=== PATIENT | female | born 1945 | race Caucasian/White ===

== ENCOUNTER → 2016-12-13 | Outpatient (CLI) | payer MEDICARE, MEDICAID | LOC: MC.RAD 12:49 | DX: Z12.31 Encounter for screening mammogram for malignant neoplasm of breast (principal) ==

== ENCOUNTER 2017-11-06 17:46 | Emergency (ER) | payer MEDICARE, MEDICAID ==
[~2017-11-06] VITALS: Ht 149.9 cm; Wt 56.4 kg
[2017-11-06] MEDS ORDERED: CELEBREX 200MG200 MG PO (18:15)
[2017-11-06] MEDS ORDERED: DEXILANT60 MG PO (18:15)
[2017-11-06] MEDS ORDERED: HCTZ12.5TAB PO (18:16)
[2017-11-06] MEDS ORDERED: REQUIP 1MG T1 MG/TAB PO (18:17)
[2017-11-06] MEDS ORDERED: SINGULAIR 110 MG/TAB PO (18:17)
[2017-11-06] MEDS ORDERED: LOPRESSOR 550 MG/TAB PO (18:18)
[2017-11-06] MEDS ORDERED: NEURONTIN300 MG/CAP PO (18:19)
[2017-11-06] MEDS ORDERED: PAXIL40 MG PO (18:19)
[2017-11-06] MEDS ORDERED: WELLBUTRIN SR150 M1 PO (18:20)
[2017-11-06] MEDS ORDERED: NORCO 325 MG-51 TAB PO (19:17)
[2017-11-06 19:34] VITALS: BP 128/60; PULSE 56; TEMP 97.9
== END 2017-11-06 19:35 | disposition home or self-care (01) ==
LOC: COL.ER 17:46
DX: M79.661 Pain in right lower leg (principal); M54.9 Dorsalgia, unspecified; F17.210 Nicotine dependence, cigarettes, uncomplicated; Z87.81 Personal history of (healed) traumatic fracture; Z90.710 Acquired absence of both cervix and uterus; Z98.890 Other specified postprocedural states; X50.9XXA Other and unspecified overexertion or strenuous movements or postures, initial encounter

== ENCOUNTER 2018-01-04 12:30 | Outpatient (RCR) | payer MEDICARE, MEDICAID ==
[~2018-01-04 12:30] MED LIST: CELEBREX 200MG200 MG PO; DEXILANT60 MG PO; HCTZ12.5TAB PO; LOPRESSOR 550 MG/TAB PO; NEURONTIN300 MG/CAP PO; NORCO 325 MG-51 TAB PO; PAXIL40 MG PO; REQUIP 1MG T1 MG/TAB PO; SINGULAIR 110 MG/TAB PO; WELLBUTRIN SR150 M1 PO
== END 2018-02-07 | disposition home or self-care (01) ==
LOC: WSPT
DX: M79.661 Pain in right lower leg (principal)
CPT/HCPCS: G8978-GP; G8979-GP

== ENCOUNTER → 2018-01-10 | Outpatient (CLI) | payer MEDICARE, MEDICAID | LOC: MC.RAD 14:13 | DX: Z12.31 Encounter for screening mammogram for malignant neoplasm of breast (principal) ==

== ENCOUNTER 2019-02-09 18:35 | Emergency (ER) | payer MEDICARE, MEDICAID ==
[~2019-02-09] VITALS: Ht 144.8 cm; Wt 48.2 kg
[2019-02-09 18:40] VITALS: TEMP 98
[2019-02-09 19:06] LABS: BASO # 0.1 (0.0-0.2); BASO % 0.5 % (0.0-2.0); EOS # 0.3 (0.0-0.7); EOS % 1.6 % (0-4.0); GRAN # 12.9 (1.4-6.5); GRAN % 70.8 % (42.2-75.2); HEMATOCRIT 40.4 % (37.0-47.0); HEMOGLOBIN 13.1 g/dl (12.5-16.0); LYMPH # 3.3 (1.2-3.4); LYMPH % 18.4 % (20.0-51.0); MEAN CELL VOLUME 86 fl (80.0-100.0); MEAN CORPUSCULAR HEMOGLOBIN 28 pg (27.0-31.0); MEAN CORPUSCULAR HGB CONC 32 g/dl (33.0-37.0); MEAN PLATELET VOLUME 9.3 fl (7.4-10.4); MONO # 1.5 (0.1-0.6); MONO % 8.1 % (1.7-9.3); PLATELET COUNT 524 K/mm3 (130-400); RED BLOOD COUNT 4.71 M/mm3 (4.10-5.30); REDCELL DISTRIBUTION WIDTH-CV 15.5 % (11.5-14.5)
[2019-02-09 19:21] LABS: ALANINE AMINOTRANSFERASE < 6 U/L (9-52); ALKALINE PHOSPHATASE 170 U/L (50-136); ANION GAP 14 mmol/L (7-16); AST,SGOT 22 U/L (15-37); BILIRUBIN,TOTAL 0.3 mg/dL (0.0-1.0); BLOOD UREA NITROGEN 16 mg/dL (7-17); C-REACTIVE PROTEIN 2.4 mg/dL (0.0-0.9); CALCIUM 9.3 mg/dL (8.4-10.2); CARBON DIOXIDE 22 mmol/L (22-30); CHLORIDE 101 mmol/L (98-107); CREATININE, serum 1.07 (0.52-1.25); GLUCOSE 93 mg/dL (74-106); LIPASE 174 U/L (23-300); POTASSIUM 3.6 mmol/L (3.4-5.0); SODIUM 136 mmol/L (137-145); TOTAL PROTEIN 8.2 gm/dL (6.4-8.2)
[2019-02-09 19:30] LABS: TROPONIN-I < 0.012 ng/mL (0.000-0.035)
[2019-02-09 20:46] LABS: COLLECTION METHOD CLEAN CATCH
[2019-02-09 20:54] LABS: MUCOUS Present /lpf; PH 5 (5-8); URINE APPEARANCE Clear; URINE BACTERIA None Seen /hpf; URINE BILIRUBIN Negative (NEGATIVE); URINE BLOOD Negative (NEGATIVE); URINE COLOR Straw; URINE GLUCOSE Negative (NEGATIVE); URINE KETONE Negative (NEGATIVE); URINE LEUKOCYTE ESTERASE Trace (NEGATIVE); URINE NITRATE Positive (NEGATIVE); URINE PROTEIN(semi-quant) Negative (NEGATIVE); URINE RBC 0-2 /hpf; URINE UROBILINOGEN Negative (NEGATIVE)
[2019-02-09] MEDS ORDERED: NORCO 325 MG-51 TAB PO (21:04)
[2019-02-09 21:11] VITALS: BP 129/74; PULSE 78
== END 2019-02-09 21:14 | disposition home or self-care (01) ==
LOC: COL.ER 18:35
PROVIDERS: Emergency Medicine
DX: R19.7 Diarrhea, unspecified (principal); R10.11 Right upper quadrant pain; R10.12 Left upper quadrant pain; F32.9 Major depressive disorder, single episode, unspecified; I10 Essential (primary) hypertension; F17.210 Nicotine dependence, cigarettes, uncomplicated
CPT/HCPCS: J2405; J3010; J7030; Q9967

== ENCOUNTER → 2019-02-21 | Outpatient (CLI) | payer MEDICARE, MEDICAID ==
[2019-02-21 10:15] LABS: BASO # 0.1 (0.0-0.2); BASO % 0.7 % (0.0-2.0); EOS # 0.3 (0.0-0.7); EOS % 2.3 % (0-4.0); GRAN # 9.6 (1.4-6.5); GRAN % 69.4 % (42.2-75.2); HEMATOCRIT 38.6 % (37.0-47.0); HEMOGLOBIN 12.4 g/dl (12.5-16.0); LYMPH # 2.6 (1.2-3.4); LYMPH % 18.6 % (20.0-51.0); MEAN CELL VOLUME 85 fl (80.0-100.0); MEAN CORPUSCULAR HEMOGLOBIN 27 pg (27.0-31.0); MEAN CORPUSCULAR HGB CONC 32 g/dl (33.0-37.0); MEAN PLATELET VOLUME 9.1 fl (7.4-10.4); MONO # 1.1 (0.1-0.6); MONO % 8.2 % (1.7-9.3); PLATELET COUNT 546 K/mm3 (130-400); RED BLOOD COUNT 4.56 M/mm3 (4.10-5.30); REDCELL DISTRIBUTION WIDTH-CV 14.6 % (11.5-14.5)
[2019-02-21 10:24] LABS: ALANINE AMINOTRANSFERASE < 6 U/L (9-52); ALBUMIN 3.8 gm/dL (3.5-5.0); ALKALINE PHOSPHATASE 151 U/L (50-136); ANION GAP 16 mmol/L (7-16); AST,SGOT 25 U/L (15-37); BILIRUBIN,TOTAL 0.2 mg/dL (0.0-1.0); BLOOD UREA NITROGEN 22 mg/dL (7-17); CALCIUM 8.9 mg/dL (8.4-10.2); CARBON DIOXIDE 21 mmol/L (22-30); CHLORIDE 101 mmol/L (98-107); CREATININE, serum 1.18 (0.52-1.25); GLUCOSE 101 mg/dL (74-106); POTASSIUM 4.1 mmol/L (3.4-5.0); SODIUM 138 mmol/L (137-145); TOTAL PROTEIN 7.8 gm/dL (6.4-8.2)
== END ==
LOC: COL.LAB 09:45 → COL.RAD 09:45
PROVIDERS: Physician Assistant
DX: I70.0 Atherosclerosis of aorta (principal); I35.0 Nonrheumatic aortic (valve) stenosis; I70.8 Atherosclerosis of other arteries; K55.1 Chronic vascular disorders of intestine; N28.81 Hypertrophy of kidney; N28.1 Cyst of kidney, acquired; K57.30 Diverticulosis of large intestine without perforation or abscess without bleeding; K20.9 Esophagitis, unspecified; R15.9 Full incontinence of feces; R19.7 Diarrhea, unspecified; R63.4 Abnormal weight loss; Z90.710 Acquired absence of both cervix and uterus
CPT/HCPCS: Q9967

== ENCOUNTER 2019-06-11 01:21 | Emergency (ER) | payer MEDICARE, MEDICAID ==
[~2019-06-11] VITALS: Ht 144.8 cm; Wt 42.7 kg
[2019-06-11 01:25] VITALS: TEMP 97.5
[2019-06-11 01:45] LABS: HEMOGLOBIN 11.5 g/dl (12.5-16.0); MEAN CELL VOLUME 82 fl (80.0-100.0); MEAN CORPUSCULAR HEMOGLOBIN 27 pg (27.0-31.0); MEAN CORPUSCULAR HGB CONC 33 g/dl (33.0-37.0); MEAN PLATELET VOLUME 9.2 fl (7.4-10.4); PLATELET COUNT 575 K/mm3 (130-400); REDCELL DISTRIBUTION WIDTH-CV 15.6 % (11.5-14.5)
[2019-06-11 01:49] LABS: HEMATOCRIT 35.4 % (37.0-47.0)
[2019-06-11 02:01] LABS: ALANINE AMINOTRANSFERASE 7 U/L (9-52); ALKALINE PHOSPHATASE 141 U/L (50-136); AST,SGOT 23 U/L (15-37); BILIRUBIN,TOTAL 0.4 mg/dL (0.0-1.0); BLOOD UREA NITROGEN 17 mg/dL (7-17); CALCIUM 8.8 mg/dL (8.4-10.2); CARBON DIOXIDE 22 mmol/L (22-30); CHLORIDE 100 mmol/L (98-107); GLUCOSE 133 mg/dL (74-106); LIPASE 52 U/L (23-300); TOTAL PROTEIN 7.6 gm/dL (6.4-8.2)
[2019-06-11 02:02] LABS: POTASSIUM 2.8 mmol/L (3.4-5.0)
[2019-06-11 02:04] LABS: SODIUM 136 mmol/L (137-145)
[2019-06-11 02:05] LABS: ANION GAP 14 mmol/L (7-16)
[2019-06-11 02:09] LABS: TROPONIN-I < 0.012 ng/mL (0.000-0.035)
[2019-06-11 02:11] LABS: ANISOCYTOSIS 1+; HYPOCHROMIA 1+; LYMPHOCYTE 4 % (20.0-51.0); NEUTROPHILS 88 % (42.0-75.2); PLATELET ESTIMATE INCREASED (NORMAL)
[2019-06-11 02:12] LABS: C-REACTIVE PROTEIN 12.8 mg/dL (0.0-0.9)
[2019-06-11 02:23] LABS: INR 1.2 (0.8-3.0); PROTHROMBIN TIME 14.3 SECONDS (9.7-12.8)
[2019-06-11 03:34] LABS: COLLECTION METHOD CLEAN CATCH
[2019-06-11 03:39] LABS: MUCOUS Present /lpf; PH 5 (5-8); SQUAMOUS EPITHELIAL 0-2 /hpf; URINE APPEARANCE Clear; URINE BACTERIA None Seen /hpf; URINE BILIRUBIN Negative (NEGATIVE); URINE BLOOD 1+ (NEGATIVE); URINE COLOR Straw; URINE GLUCOSE Negative (NEGATIVE); URINE KETONE Negative (NEGATIVE); URINE LEUKOCYTE ESTERASE Negative (NEGATIVE); URINE NITRATE Negative (NEGATIVE); URINE PROTEIN(semi-quant) Negative (NEGATIVE); URINE RBC 0-2 /hpf; URINE UROBILINOGEN Negative (NEGATIVE)
[2019-06-11 07:08] VITALS: BP 137/88; PULSE 85
== END 2019-06-11 07:20 | disposition short-term general hospital (02) ==
LOC: COL.ER 01:21
PROVIDERS: Emergency Medicine
DX: K55.9 Vascular disorder of intestine, unspecified (principal); I10 Essential (primary) hypertension; F17.210 Nicotine dependence, cigarettes, uncomplicated
CPT/HCPCS: C9113; J1644; J2270; J2405; J2543; J3480; J7030; J7040; Q9967